=== PATIENT | female | born 1960 | race Caucasian/White ===

== ENCOUNTER → 2016-10-22 | Emergency (ER) | payer OTHER ==
[~2016-10-22] VITALS: Wt 71.0 kg
[~2016-10-22] MED LIST: LIDOCAINE/MYLANTA 40 ML BTL PO ONE; OMEP40CA6 PO; RANI150T9 PO
[2016-10-22 19:09] VITALS: BP 148/71; PULSE 50; RESP 18; TEMP 98.3
--- NOTE | 2016-10-22 23:55 | ERD ---
ER Documentation Chief Complaint Date/Time DATE: 10/22/16 TIME: 23:54 Chief Complaint EPIGASTRIC PAIN, HX OF ACID REFLUX, NO CHEST PAIN HPI This patient is a 56-year-old female presenting to the emergency department with complaints of epigastric pain and a bitter taste in her mouth. The patient does have history of acid reflux and H. pylori. Symptoms are worsening. She sometimes feels that food is "stuck"\\after eating. She is currently taking omeprazole 80 mg daily, but is only receiving mild relief. She denies fevers, chills, significant nausea or vomiting, diarrhea, or other symptoms. ROS All systems reviewed and are negative except as per history of present illness. Medications Home Meds Active Scripts Ranitidine Hcl* (Zantac*) 150 Mg Tablet, 150 MG PO BID Y for EPIGASTRIC PAIN, # 30 TAB Prov:CAESAR ROMANO PA-C 10/22/16 Reported Medications Omeprazole* (Omeprazole*) 40 Mg Capsule.dr, 40 MG PO DAILY, #30 CAP 01/19/16 Allergies Allergies: Coded Allergies: No Known Drug Allergies (Unverified Allergy, Unknown, 01/19/16) PMhx/Soc Medical and Surgical Hx: pt denies Medical Hx History of Surgery: Yes (BTL) Anesthesia Reaction: No Hx Neurological Disorder: No Hx Respiratory Disorders: No Hx Cardiac Disorders: No Hx Psychiatric Problems: No Hx Miscellaneous Medical Probl: No Hx Alcohol Use: No Hx Substance Use: No Hx Tobacco Use: No Smoking Status: Never smoker Physical Exam Vitals Vital Signs Date Time Temp Pulse Resp B/P Pulse Ox O2 Delivery O2 Flow Rate FiO2 10/22/16 19:09 98.3 50 18 148/71 99 Room Air 10/22/16 17:49 98.3 71 18 125/65 99 Physical Exam Const: Nontoxic, well-appearing female in no acute distress. Head: Atraumatic Eyes: Normal Conjunctiva ENT: Normal External Ears, Nose and Mouth. Neck: Full range of motion..~ No meningismus. Resp: Clear to auscultation bilaterally Cardio: Regular rate and rhythm, no murmurs Abd: Soft, non tender, non distended. Normal bowel sounds Skin: No petechiae or rashes Back: No midline or flank tenderness Ext: No cyanosis, or edema Neur: Awake and alert Psych: Normal Mood and Affect Results 24 hrs Current Medications Medications (Trade) Dose Ordered Sig/Jefferson Route PRN Reason Start Time Stop Time Status Last Admin Dose Admin Miscellaneous Medication (Gi Cocktail (2)) 40 ml ONCE ONCE PO 10/22/16 18:30 10/22/16 18:31 DC 10/22/16 18:38 Procedures/MDM 56-year-old female presents to the emergency department with complaints of midepigastric pain and GERD symptoms. On physical examination the patient's vitals are within normal limits. The patient's abdominal exam is benign. I do not feel that the patient requires further workup in the department as she has a history of GERD and this is an acute exacerbation of her chronic complaint. I have low suspicion for acute abdominal emergencies. The patient was given a GI cocktail in the department and she was feeling improved on reevaluation. The patient is already on omeprazole, and so she will be prescribed ranitidine. 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 Her questions and concerns were addressed. Strict ER return precautions were discussed. Departure Diagnosis: Primary Impression: GERD (gastroesophageal reflux disease) Esophagitis presence: esophagitis presence not specified Qualified Code: K21.9 - Gastroesophageal reflux disease, esophagitis presence not specified Additional Impression: Epigastric pain Condition: Fair Patient Instructions: Gerd (Adult) Referrals: ARI DIGGS MD,RODRICK GONZALEZ,[facility] () Usted se martínez hecho un examen mdico de control que le indica que no est en octavia condicin que requiera tratamiento urgente en el Departamento de Emergencia. Un estudio ms profundo y el tratamiento de mittal condicin pueden esperar sin ningn riesgo hasta que usted sea atendida/o en el consultorio de mittal mdico o octavia cl garo. Es responsabilidad suya arreglar octavia sylvester para el seguimiento del marlee. MANEJO DE CONDICIONES NO URGENTES EN EL FUTURO 1) Si usted tiene un mdico de atencin primaria: Usted debera llamar a mittal mdico de atencin primaria antes de venir al departamento de emergencia. Despus de las horas de consultorio, mittal doctor o mittal asociado/a est disponible por telfono. El mdico o enfermero de amanda en el servicio telefnico puede asesorarle por goran medio para atender el problema, o marlee contrario se puede programar octavia sylvester. 2) Si usted no tiene un mdico de atencin primaria: Llame al mdico o clnica de referencia que aparece abajo john las horas de consultorio para hacer octavia sylvester para que le vean. CLINICAS: [facility] [phone] [facility] [phone] [facility] [phone] [facility] [address] [facility] [phone] [address] [facility]. [place] [id number] [phone] [facility] [phone] [address] Additional Instructions: Recommended using Gaviscon Liquid Antacid as an outpatient prn for GERD symptoms. Follow all labels when taking over the counter medication. Follow up with your PCP within the next 1-3 days for a repeat evaluation. If you require a referral to a specialist, your Primary Care Provider may be able to provide this for you. In most patient cases, a referral is not required. If you have further questions regarding this matter, please ask your Primary Care Provider. Return the the emergency department immediately if symptoms worsen or change. If you have any questions regarding medications, ask your pharmacist or us before you leave. If any adverse reactions, occur while taking your medications, discontinue the treatment and return to the emergency department immediately. If any new or worsening symptoms, uncontrolled fevers, or other unexplained symptoms occur, return to the emergency department immediately. Take your medications as directed, and complete the entire course of treatment. CAESAR ROMANO PA-C Oct 22, 2016 23:55
== END | disposition home or self-care (01) ==
LOC: FTE 17:41
DX: K21.9 Gastro-esophageal reflux disease without esophagitis (principal)
CPT/HCPCS: 99283

== ENCOUNTER 2017-12-19 08:41 | Day surgery (SDC) | END 2017-12-19 15:28 | disposition home or self-care (01) ==